=== PATIENT | female | born 1980 | race Caucasian/White ===

== ENCOUNTER 2019-11-25 09:07 | Emergency (ER) | payer MEDICAID ==
[2019-11-25] MEDS ORDERED: normal saline 1000ML IV soln IVB ONE (09:55)
[2019-11-25] MEDS ORDERED: ondansetron/PF 4mg/2ml inj IV ONE (09:55)
[2019-11-25] MEDS ORDERED: ketorolac tromethamine 15mg/ml inj. IV ONE (09:55)
[2019-11-25 10:10] LABS: CLARITY,URINE CLOUDY (Clear); COLOR,URINE YELLOW (Yellow); GLUCOSE, URINE NEGATIVE (Neg); KETONES,URINE NEGATIVE (Neg); LEUKOCYTE ESTERASE ,URINE MODERATE (Neg); NITRITES, URINE NEGATIVE (Neg); OCCULT BLOOD,URINE MODERATE (Neg); PH,URINE 5.5 (4.8-8.0); PROTEIN,URINE 100 mg/dl (Neg); UROBILINOGEN,URINE >=8.0 E.U/dL (0.2-1.0)
[2019-11-25 10:11] LABS: UA COLLECTION TYPE CLN CATCH MIDSTREAM
[2019-11-25 10:27] LABS: BACTERIA,URINE 2+ /HPF (Neg); MUCUS STRANDS NONE SEEN /LPF (Neg); RENAL CELLS, URINE FEW /HPF; SQUAMOUS EPITHELIAL CELL,UR FEW /LPF (FEW); WBC CLUMPS,URINE MANY /HPF (NEGATIVE); WBC,URINE TNTC /HPF (0-4)
[2019-11-25 10:30] LABS: BASOPHILS % (AUTO) 0.2 % (0-1); EOSINOPHILS % (AUTO) 0.3 % (0-6); HEMOGLOBIN 11.6 g/dl (12.0-16.0); LYMPHOCYTES # (AUTO) 0.9 X10'3 (1.1-4.8); LYMPHOCYTES % (AUTO) 7.2 % (21-51); MEAN CORPUSCULAR HEMOGLOBIN 26.2 PG (27.0-31.0); MEAN CORPUSCULAR VOLUME 79.4 FL (78-98); MEAN PLATELET VOLUME 8.5 FL (7.4-10.4); MONOCYTES # (AUTO) 1.4 X10'3 (0-0.9); MONOCYTES % (AUTO) 11.5 % (2-12); NEUTROPHILS # (AUTO) 10.1 X10'3 (1.8-7.7); NEUTROPHILS % (AUTO) 80.8 % (42-75); PLATELET COUNT 246 X10'3 (140-440); RED BLOOD COUNT 4.41 X10'6 (4.20-5.60); RED CELL DISTRIBUTION WIDTH 15.9 % (11.5-14.5); WHITE BLOOD COUNT 12.5 X10'3 (4.5-11.0)
[2019-11-25 10:41] LABS: ALANINE AMINOTRANSFERASE 82 U/L (12-78); ALBUMIN 2.8 G/DL (3.4-5.0); ALBUMIN/GLOBULIN RATIO 0.5 (1.1-1.5); ALKALINE PHOSPHATASE 227 IU/L (46-116); ANION GAP 13 (8-16); ASPARTATE AMINO TRANSFERASE 52 U/L (10-37); BILIRUBIN,TOTAL 0.4 MG/DL (0.1-1.0); BLOOD UREA NITROGEN 13 MG/DL (7-18); BUN/CREATININE RATIO 10.3 (6.6-38.0); CALCIUM 8.7 MG/DL (8.5-10.1); CHLORIDE 101 MMOL/L (99-107); CREATININE 1.26 MG/DL (0.40-0.90); LACTATE DEHYDROGENASE 217 U/L (81-234); LIPASE 291 U/L (73-393); SODIUM 137 MMOL/L (135-145); TOTAL CARBON DIOXIDE 23.4 MMOL/L (24-32); TOTAL PROTEIN 8.2 G/DL (6.4-8.2); eGFR 47 ML/MIN
[2019-11-25] MEDS ORDERED: CefTRIAXone/D5W-Rocephin 1gm 50 ML IV ONE (10:50)
[2019-11-25] MEDS ORDERED: potassium Cl 20 mEq SR tablet PO ONE (10:50)
[2019-11-25 10:53] LABS: HCG SERUM QL NEGATIVE
[2019-11-25 10:54] LABS: GLUCOSE 97 MG/DL (70-104)
[2019-11-25 10:55] LABS: C-REACTIVE PROTEIN 33.35 MG/DL (0.0-0.5)
[2019-11-25] MEDS ORDERED: CEPH500C5 PO (11:36)
[2019-11-25] MEDS ORDERED: IBUP-1985 PO (11:37)
[2019-11-25 11:59] VITALS: BP 118/67
== END 2019-11-25 12:00 | disposition home or self-care (01) ==
LOC: ER 09:07
DX: N12 Tubulo-interstitial nephritis, not specified as acute or chronic (principal); R94.5 Abnormal results of liver function studies; F15.90 Other stimulant use, unspecified, uncomplicated; F31.9 Bipolar disorder, unspecified; F17.200 Nicotine dependence, unspecified, uncomplicated; Z90.49 Acquired absence of other specified parts of digestive tract; Z98.51 Tubal ligation status; Z98.890 Other specified postprocedural states; Z59.0 Homelessness; Z88.2 Allergy status to sulfonamides; Z88.5 Allergy status to narcotic agent; Z88.0 Allergy status to penicillin; Z88.8 Allergy status to other drugs, medicaments and biological substances; Z79.2 Long term (current) use of antibiotics
CPT/HCPCS: 36415; 74176; 80053; 81001; 83615; 83690; 84145; 84703; 85025; 86140; 87088; 87186; 96361; 96365; 96375; 99284; J0696; J1885; J2405; J7030; 87077